=== PATIENT | male | born 1995 ===

== ENCOUNTER 2019-12-18 05:39 | Day surgery (SDC) | payer OTHER ==
[~2019-12-18] VITALS: Ht 167.6 cm; Wt 98.2 kg
[2019-12-18 06:06] VITALS: BP 150/87; PULSE 71; TEMP 98
--- NOTE | 2019-12-18 07:13 | NUR ---
Patient to the OR with ONOFRE Arellano at this time.
[2019-12-18 08:25] VITALS: BP 127/82; PULSE 78; TEMP 98.2
--- NOTE | 2019-12-18 08:25 | NUR ---
Patient arrives to [facility] [place] [address] via cart, accompanied by OPERATIONAL INTELLIGENCE OFFICER Génesis. He is alert and oriented, lying in bed. He denies pain or nausea. Monitoring is applied - VSS and WNL on room air. He has a Loaiza catheter with statlock to dependent drainage. Urine is clear/yellow. Small amount of urine in bag. He is offered and receives water and a muffin to eat.
[2019-12-18 08:40] VITALS: BP 119/81; PULSE 83
--- NOTE | 2019-12-18 08:40 | NUR ---
Patient is resting comfortably in his room. Denies Pain, nausea, or need.
[2019-12-18 08:43] VITALS: TEMP 98.2
[2019-12-18 08:55] VITALS: BP 127/93; PULSE 70
--- NOTE | 2019-12-18 09:20 | NUR ---
Patient has met discharge criteria. Discharge instructions are discussed. Álvarez catheter care is taught. Patient denies questions and verbalizes understanding. He is given a álvarez catheter leg bag to take home and instructed on how to exchange mechanic bags. He is given a handout regarding álvarez catheter care, as well as the hospital and Dr. Jamison's office number to call with any questions or concerns. An appointment is made for 11/21/2019 for him to have the catheter removed in the office. He is also reminded of his follow-up appointment with dr. jamison on 11/24/2019. 50 mL clear, yellow urine is emptied from dependent drainage bag. He is assisted to change into his clothing by staff. Gauze is removed from the insertion site and there is no drainage noted. He is escorted to the exit via wheelchair by staff. His friend, Sukhjinder, picks him up in private vehicle. He is discharged to home with ride at 0920.
== END 2019-12-18 09:20 | disposition home or self-care (01) ==
LOC: SDCO 05:39
DX: N35.812 Other bulbous urethral stricture, male (principal)
CPT/HCPCS: C1769; J0690; J2704; J3010; J7120